=== PATIENT | female | born 1990 | race Caucasian/White ===

== ENCOUNTER → 2017-09-09 | Day surgery (SDC) | payer OTHER ==
[~2017-09-09] VITALS: Ht 157.5 cm; Wt 66.7 kg
[~2017-09-09] MED LIST: CHLORHEXIDINE GLUCONATE 2 % 1 PACK (2 CLOTHS) TOPICAL PRN; DEXAMETHASONE SOD PHOS 4 MG/ML VIAL IV ONE; DO NOT ADM ANY ANTICOAGULANT DRUGS PRN; LACTATED RINGER'S 1000 ML IV PRN; LIDOCAINE HCL 1% PF 5 ML SYRINGE OTHER ONE; LOPE2TAB3 PO; MACR100C PO; METOPROLOL TARTRATE 25 MG TAB PO PRN; MIDAZOLAM HCL 2 MG/2 ML VIAL ONE; ONDANSETRON HCL 4 MG/2 ML VIAL IV ONE; PERC5TAB12 PO; POVIDONE IODINE 5% (ANTISEPSIS KIT) 4 APPLICATIONS EACH NARE PRN; PROPOFOL 200 MG/20 ML AMP IV ONE; SODIUM CHLORID 0.9% 500 ML IV PRN; ZOFR4TAB3 SL
[2017-09-09 06:32] LABS: AUTOMATED NEUTROPHIL # 2.1 TH/MM3 (1.8-7.7); BASOPHIL % 0.5 % (0.0-2.0); EOSINOPHIL # 0.2 TH/MM3 (0-0.4); EOSINOPHIL % 3.1 % (0.0-4.0); HEMATOCRIT 40.7 % (35.0-46.0); HEMOGLOBIN 14.4 GM/DL (11.6-15.3); LYMPH % 44.9 % (9.0-44.0); LYMPHOCYTE # 2.2 TH/MM3 (1.0-4.8); MEAN CORPUSCULAR HEMOGLOBIN 32.9 PG (27.0-34.0); MEAN CORPUSCULAR HGB CONC 35.4 % (32.0-36.0); MEAN PLATELET VOLUME 7.1 FL (7.0-11.0); MONO % 9.3 % (0.0-8.0); MONOCYTE # 0.5 TH/MM3 (0-0.9); NEUT % 42.2 % (16.0-70.0); PLATELET COUNT 254 TH/MM3 (150-450); RED BLOOD COUNT 4.37 MIL/MM3 (4.00-5.30); RED CELL DISTRIBUTION WIDTH 11.9 % (11.6-17.2); WHITE BLOOD COUNT 4.9 TH/MM3 (4.0-11.0)
--- NOTE | 2017-09-09 07:19 | PD.OP ---
Operative Report Date of Surgery: September 09, 2017 Preoperative Diagnosis: (1) Missed Postoperative Diagnosis: (1) Missed Procedure: D&C with suction Anesthesia: general wan Surgeon: Max Kilgore Corporate Trainer(s): Max Woodall MD September 09, 2017 07:19
--- NOTE | 2017-09-09 07:21 | HHI.DCPOC ---
Discharge Care Plan Diagnosis: (1) Missed Report Symptoms to Your Doctor -Temperature above 100.5 degrees -Redness, of incision or excessive or foul smelling drainage -Unusual pain or calf pain -Increased vaginal bleeding -Painful or difficulty urinating -Feelings of extreme sadness or anxiety after 2 weeks Goals to Promote Your Health * To prevent worsening of your condition and complications * To maintain your health at the optimal level Directions to Meet Your Goals Take your medications as prescribed Follow your dietary instruction Follow activity as directed Ensure plenty of rest for recovery Drink fluids for hydration Keep your appointments as scheduled Take your immunizations and boosters as scheduled If your symptoms worsen call your PCP, if no PCP go to Urgent Care Center or Emergency Room Smoking is Dangerous to Your Health. Avoid second hand smoke Call the 24-hour crisis hotline for domestic abuse at Max Kilgore MD September 09, 2017 07:21
--- NOTE | 2017-09-09 07:34 | MP ---
cc: Max Kilgore MD DATE OF OPERATION: 09/09/2017 PROCEDURE: Dilatation and curettage with suction curet. PREOPERATIVE DIAGNOSIS: Missed . POSTOPERATIVE DIAGNOSIS: Missed . SURGEON: Max Kilgore MD. ESTIMATED BLOOD LOSS: Less than 25 mL. COMPLICATIONS: None. FINDINGS: Products of conception and an 8-week size uterus. No adnexal masses on exam. ANESTHESIA: Dr. Lopez general. PROCEDURE IN DETAIL: After informed consent, the patient was taken to the operating room where she was placed under general anesthesia. She was placed in the supine position, legs in the candy cane stirrups. Abdomen, perineum and vagina were prepped and draped in normal sterile fashion and the bladder was drained with a red Dugan catheter. After adequate anesthesia was assured and a time-out was taken, a speculum was placed in the vagina. The cervix was grasped with a single-tooth tenaculum. The uterus was sounded to 8 cm and then sequential dilators were used, so an 8 mm suction curette could be passed to the fundus. Once the patient was dilated and the curette was passed, all products of conception were evacuated. A sharp curette was passed in all 4 quadrants until there were no remaining products of conception. Suction curette was passed one last time. All instruments were removed from the vagina. Pressure was held on the tenaculum site until it stopped bleeding. The patient tolerated the procedure well. She was taken to recovery room in stable condition. Lap and instrument counts were reported as correct. Max Kilgore MD JWM/DL , 07:24 AM , 07:33 AM
[2017-09-09 08:30] VITALS: BP 100/61; PULSE 68; RESP 16; TEMP 98.8; O2SAT 100
== END | disposition home or self-care (01) ==
LOC: HSDC 05:19
PROVIDERS: ATTEND Obstetrics & Gynecology
DX: O02.1 Missed abortion (principal)
CPT/HCPCS: 01965; 59820; 85025; 86900; 86901; 88305; J1100; J2250; J2405; J3010; J7120